=== PATIENT | female | born 1965 | race African-American/Black ===

== ENCOUNTER 2018-01-28 16:07 | Emergency (ER) | payer MEDICAID, MEDICARE ==
[~2018-01-28] VITALS: Ht 172.7 cm; Wt 70.0 kg
[~2018-01-28 16:07] MED LIST: AMLO-511 PO; ASPI-825 PO; BUPR150SR PO; DOCU-119 PO; GABA300T PO; LEVO75TA4 PO; LISI10TA7 PO; TRAZ-147 PO
[2018-01-28] MEDS ORDERED: LORazepam 1 MG TABLET PO ONE (19:30)
[2018-01-28 19:55] VITALS: BP 141/76
== END 2018-01-28 19:57 | disposition home or self-care (01) ==
LOC: EMS 16:09
DX: F41.9 Anxiety disorder, unspecified (principal); F32.9 Major depressive disorder, single episode, unspecified; F43.10 Post-traumatic stress disorder, unspecified; I10 Essential (primary) hypertension; E03.9 Hypothyroidism, unspecified
CPT/HCPCS: 99284